=== PATIENT | female | born 1985 | race Caucasian/White ===

== ENCOUNTER → 2016-03-25 | Outpatient (CLI) | payer OTHER ==
[2016-03-25 12:45] LABS: CH 30.1; CHCM 35.4; HCT 36.3 % (34.0-46.0); HDW 3.23; HGB 12.3 gm/dL (11.4-16.0); MCH 28.8 pg (25.0-35.0); MCHC 33.7 g/dL (31.0-37.0); MCV 85.4 fL (80.0-100.0); Mean Platelet Volume 7.8; RBC 4.25 m/uL (3.80-5.40); RDW 13.6 % (11.5-15.5); WBC 8.3 k/uL (3.8-10.6)
== END | disposition home or self-care (01) ==
LOC: LABWHC1 10:44
PROVIDERS: ATTEND Obstetrics & Gynecology
DX: Z34.82 Encounter for supervision of other normal pregnancy, second trimester (principal); Z3A.00 Weeks of gestation of pregnancy not specified
CPT/HCPCS: 36415; 82950; 85027; 86850

== ENCOUNTER → 2016-05-06 | Outpatient (CLI) | payer OTHER ==
--- NOTE | 2016-05-06 09:28 | US ---
EXAMINATION TYPE: US OB anatomy transabd third trimester DATE OF EXAM: 05/06/2016 7:45 AM COMPARISON: on PACS second trimester December 19, 2015 HISTORY: Anatomy TECHNIQUE: Transabdominal (TA) EXAM MEASUREMENTS: GESTATIONAL AGE / DATING Physician Established: (34 weeks/6 days) EDC: 06/08/2016 Dates by Current Scan for: (34 weeks/4 days) EDC: 06/13/2016 SURVEY IUP: Single PLACENTA: Posterior PREVIA: No previa TAMELA: 19.1 cm CERVICAL LENGTH (transabdominal: norm > 3.0cm): 3.4 cm BIOMETRY PRESENTATION: Vertex LIE: Longitudinal BPD: 8.5 cm 34 weeks / 2 days HC: 31.6 cm 35 weeks / 4 days AC: 30.7 cm 34 weeks / 5 days FL: 6.5 cm 33 weeks / 4 days ESTIMATED WEIGHT IN GRAMS: 2418 grams ESTIMATED WEIGHT IN LBS/OZS: 5 lbs. 5 oz. WEIGHT PERCENTAGE BASED ON ESTABLISHED DATE: 33 % HC/AC: Normal FL/AC: Normal HEART RATE: 138 bpm RHYTHM: Normal ANATOMY SEEN (within normal limits): * Lateral Vent (< 1 cm) 0.5 cm Choroid Plexus (bilateral) Midline Falx Cavus Septi Pellucidi Four Chamber Heart Outflow tracts: LVOT/RVOT Stomach Situs Nose / Lips Diaphragm Kidneys (bilateral) Bladder Cord Insert Three Vessel Cord Longitudinal Spine Transverse Spine Legs (bilateral) ANATOMY SEEN (does not appear within normal limits): ANATOMY NOT SEEN: * Cisterna Magna (< 1.1 cm) cm * Nuchal Fold (< 0.6 cm) cm * Cerebellum (varies with age) cm Arms (bilateral) TECHNOLOGIST IMPRESSION: Suboptimal visualization of anatomy due to advanced gestational age. Live IUP measuring 34 weeks 4 days. Single live intrauterine gestation is redemonstrated. Normal cephalad presentation to fetus is curre ntly seen. Amniotic fluid index is upper limits of normal. There is no ultrasound evidence for placen ta previa. biometry measurements are within normal limits. Detailed anatomical survey shows no suspicious abnormality but is noted suboptimal due to advanced age particularly during real-ti me scanning bilateral upper extremities and intracranial structures are suboptimally evaluated. Other findings felt within normal limits during real-time scanning. Still images saved also document ruby l-appearing anatomy in the above structures. IMPRESSION:As above
== END | disposition home or self-care (01) ==
LOC: RADUSWWP 07:01
PROVIDERS: ATTEND Obstetrics & Gynecology
DX: O36.63X0 Maternal care for excessive fetal growth, third trimester, not applicable or unspecified (principal)
CPT/HCPCS: 76811

== ENCOUNTER 2016-06-11 13:00 | Inpatient (IN) | payer OTHER ==
[2016-06-13] MEDS ORDERED: LIDOCAINE 1% (PF) 10 MG/ML (30 ML SDV) SQ PRN (06:04)
[2016-06-13] MEDS ORDERED: CARBOPROST TROMETHAMINE 250 MCG/ML 1 ML AMP IM PRN (06:04)
[2016-06-13] MEDS ORDERED: OXYTOCIN 30 UNITS/500 ML NS 30 UNIT in SALINE 1 500ML.BAG IV SCH (06:04)
[2016-06-13] MEDS ORDERED: OXYTOCIN 10 UNIT/ML 1 ML VIAL IM PRN (06:04)
[2016-06-13] MEDS ORDERED: METHYLERGONOVINE 0.2 MG/ML 1 ML AMP IM PRN (06:04)
[2016-06-13] MEDS ORDERED: TERBUTALINE 1 MG/ML VIAL SQ PRN (06:04)
--- NOTE | 2016-06-13 06:05 | P.HPOB ---
History of Present Illness H&P Date: 06/13/16 Chief Complaint: Patient is presenting for requested induction of labor. This patient is a pleasant 31-year-old 4 para 2 female estimated date of confinement 06/11/2016 estimated gestational age 40-2/7 weeks who presents to labor and delivery for requested induction of labor. Patient's care has been uncomplicated. Review of Systems Constitutional: Denies chills, Denies fever Ears, nose, mouth and throat: Denies headache, Denies sore throat Cardiovascular: Denies chest pain, Denies shortness of breath Respiratory: Denies cough Gastrointestinal: Reports heartburn Genitourinary: Reports Menstruation: Reports amenorrhea Musculoskeletal: Denies myalgias Integumentary: Denies pruritus, Denies rash Neurological: Denies numbness, Denies weakness Psychiatric: Denies anxiety, Denies depression Endocrine: Denies fatigue, Denies weight change Past Medical History Past Medical History: No Reported History History of Any Multi-Drug Resistant Organisms: None Reported Past Surgical History: Orthopedic Surgery Past Anesthesia/Blood Transfusion Reactions: No Reported Reaction Past Psychological History: No Psychological Hx Reported Smoking Status: Never smoker Past Alcohol Use History: None Reported Past Drug Use History: None Reported Medications and Allergies Home Medications Medication Instructions Recorded Confirmed Type Pnv with Ca,No.72/Iron/FA 1 tab PO DAILY 06/30/15 05/22/16 History [ Plus Tablet] Allergies Allergy/AdvReac Type Severity Reaction Status Date / Time No Known Allergies Allergy Verified 05/22/16 17:04 Exam - OBG Physical Exam Abdomen: bowel sounds normal, no diffuse tenderness, no bruit present, no guarding noted, no hepatomegaly, no splenomegaly, no mass Vulva: both: normal Vagina: normal moisture, no discharge Cervix: Cervix in the office was 2 cm dilated and vertex presentation. Uterus: enlarged (Fundal height is consistent with a term .) Results blood work shows she is O-, rubella immune, RPR is nonreactive, hepatitis B is negative, B strep was negative, ultrasounds have been normal, patient did receive RhoGAM on March 26. Assessment and Plan (1) Third trimester Narrative/Plan: This is a pleasant 31-year-old 4 para 2 female 40-2/7 weeks gestation who is presenting for requested induction of labor. Plan is induction of labor and anticipate vaginal delivery. Status: Acute (2) Elective induction of labor planned Status: Acute (3) Rh negative status during Status: Acute
[2016-06-13] MEDS: LACTATED RINGERS 1,000 ML IV SCH ×3 (06:21→23:13)
[2016-06-13 07:16] VITALS: BMI 41.5
[2016-06-13 07:32] LABS: Basophils % (A) 0 %; CH 29.8; Eosinophils # (A) 0.1 k/uL (0-0.7); Eosinophils % (A) 1 %; HCT 37.3 % (34.0-46.0); HDW 3.29; HGB 13.1 gm/dL (11.4-16.0); Luc # (Auto) 0.13; Luc % (Auto) 1; Lymphocytes # (A) 1.7 k/uL (1.0-4.8); Lymphocytes % (A) 16 %; MCH 29.4 pg (25.0-35.0); MCHC 35.3 g/dL (31.0-37.0); MCV 83.3 fL (80.0-100.0); Mean Platelet Volume 7.6; Monocytes # (A) 0.5 k/uL (0-1.0); Monocytes % (A) 5 %; Neutrophils # (A) 7.8 k/uL (1.3-7.7); Neutrophils % (A) 77 %; RBC 4.47 m/uL (3.80-5.40); RDW 14.2 % (11.5-15.5); WBC 10.2 k/uL (3.8-10.6); WBC (Perox) 10.78
[2016-06-13 12:16] LABS: Glucose,Whole Blood 74 mg/dL (75-99)
[2016-06-13] MEDS ORDERED: SODIUM CHLORIDE 0.9% 100 ML BAG ONE (18:55)
[2016-06-13] MEDS ORDERED: fentaNYL (PF) 50 MCG/ML 5 ML AMP ONE (18:55)
[2016-06-13] MEDS ORDERED: BUPIVACAINE (PF) 0.25% 30 ML VIAL ONE (18:55)
[2016-06-13] MEDS ORDERED: BUPIVACAINE (PF) 0.25% 25 ML, fentaNYL (PF) 200 MCG in SODIUM CHLORIDE 0.9% 71 ML EPIDURAL ONE (19:10)
[2016-06-13] MEDS ORDERED: ceFAZolin 2 GM in SODIUM CHLORIDE 0.9% 100 ML IVPB ONE (23:01)
[2016-06-13] MEDS ORDERED: CITRIC ACID-SODIUM CITRATE 15 ML CUP PO ONE (23:01)
[2016-06-13] MEDS ORDERED: LIDOCAINE HCL/PF 20 MG/ML 10 ML AMP ONE (23:18)
[2016-06-13] MEDS ORDERED: ePHEDrine 50 MG/ML 1 ML AMP ONE (23:18)
[2016-06-13] MEDS ORDERED: ONDANSETRON 4 MG/2 ML VIAL ONE (23:18)
[2016-06-13] MEDS ORDERED: fentaNYL (PF) 50 MCG/ML 2 ML AMP ONE (23:18)
[2016-06-13] MEDS ORDERED: ceFAZolin 1,000 MG VIAL ONE (23:18)
[2016-06-13] MEDS ORDERED: OXYTOCIN 10 UNIT/ML 1 ML VIAL IM ONE (23:18)
[2016-06-13] MEDS ORDERED: KETOROLAC 30 MG/ML 1 ML VIAL ONE (23:18)
[2016-06-14] MEDS ORDERED: SIMETHICONE 80 MG CHEWABLE PO PRN (00:14)
[2016-06-14] MEDS ORDERED: IBUPROFEN 600 MG TAB PO PRN (00:14)
[2016-06-14] MEDS ORDERED: ZOLPIDEM 5 MG TAB PO PRN (00:14)
[2016-06-14] MEDS ORDERED: NALOXONE 0.4 MG/ML 1 ML VIAL IV PRN ×2 (00:14→00:20)
[2016-06-14] MEDS ORDERED: diphenhydrAMINE 50 MG/ML 1 ML VIAL IVP PRN (00:14)
[2016-06-14] MEDS ORDERED: diphenhydrAMINE 25 MG CAP PO PRN (00:14)
[2016-06-14] MEDS ORDERED: ACETAMINOPHEN TAB 325 MG TAB PO PRN (00:14)
[2016-06-14] MEDS ORDERED: METOCLOPRAMIDE 5 MG/ML 2 ML VIAL IVP PRN (00:14)
[2016-06-14] MEDS ORDERED: ONDANSETRON 4 MG/2 ML VIAL IVP PRN (00:14)
[2016-06-14] MEDS ORDERED: HYDROmorphone PCA 5 MG/25 ML SYRINGE IV PRN (00:20)
--- NOTE | 2016-06-14 00:28 | P.OP ---
Date of Procedure: 06/13/16 Preoperative Diagnosis: #1: 40-2/7 week intrauterine . #2: Failure to progress in labor. #3: Multi parity desires permanent sterilization. Postoperative Diagnosis: Same Procedure(s) Performed: Primary low transverse section and bilateral partial salpingectomy. Anesthesia: epidural Surgeon: Matthew Carrillo Art Objects Salesperson #1: Nereyda Dave Estimated Blood Loss (ml): 800 Pathology: other (Placenta and bilateral fallopian tube segments) Condition: stable Disposition: floor Indications for Procedure: Please see dictated H&P for intimate details of this patient's admission. In brief summary this a pleasant 31-year-old 4 para 2 female 40-2/7 weeks gestation who is admitted to labor and delivery for postdates induction of labor. Patient labor throughout the day and despite adequate labor does not progress beyond 8-9 cm and the head beyond 0 station. At this time I discussed with the patient further observation versus section we've elected proceed with at this time. She also was requesting tubal ligation for permanent sterilization. Patient does understand surgery has risks including risks of infection, bleeding, possible injury bowel, bladder, vessels, and other organs. She also understands a tubal ligation is permanent although there is a failure rate of approximately 20-25 per thousand procedures done. All the patient's questions are answered written consent is obtained. Operative Findings: This is a vigorous viable female Apgars 9 and 9 delivery time was 2338 hrs. Description of Procedure: This patient has a Salas catheter placed to straight drain. She is taken to the operating room where her epidural is dosed up for sufficient level for surgery. With an adequate level of anesthesia she has abdominal prep and drape. Scalpels and taken a Pfannenstiel skin incision is then made. A second scalpel is taken down the fascia the fascia scored with a knife. Fascial incision extended bilaterally using the Disla scissors. Fascia is then dissected off the rectus muscles. Rectus muscles are the peritoneum identified and entered sharply. Peritoneal incision extended superior and inferior without difficulty. Bladder blade is then placed. Bladder peritoneum was taken off the lower uterine segment. Scalpels taken low transverse uterine incision is then made. Using a hemostat I into the uterine cavity bluntly and there is loss of clear fluid. The uterine incision is extended bluntly bilaterally. 's head is then guided through the incision. The infant is os but transverse presentation. Mouth and nares are bulb suctioned. There is no evidence of nuchal cord. Then delivery anterior posterior shoulder and rest this infant's body. This is a vigorous viable female infant Apgars 9 and 9 delivery time was 2338 hrs. After delivery of the the umbilical cords doubly clamped and cut appears to be trivascular. Placenta is manually extracted intact. The uterine incision is then demarcated with Rain clamps and then closed using 0 Vicryl running locked fashion 2 layers. Excellent hemostasis is noted. I turned my attention left fallopian tube approximately 4 cm from the cornual insertion a small window is made to the mesial salpinx with Bovie cautery. Using a 2-0 silk I doubly ligate a piece of the tube. A 2 cm segment of the tube is then excised with Metzenbaum scissors and then handed off to pathology. Cauterization done of the tubal ends and good hemostasis is noted. Similar technique is done on the right side with similar results. This completed excess fluid is removed from the abdomen and pelvis. Uterus placed back into the abdomen. Parietal peritoneum was then identified and closed using 0 Vicryl running fashion. Rectus muscle reapproximate 0 Vicryl interrupted fashion. Fascia is then closed using 0 PDS in a running fashion. Fascial incision is intact and hemostatic. Subcutaneous tissues and closed using a 3-0 Vicryl. Skin is and closed using gely. Sterile dressing is applied. Patient is then taken to the birthing suite in satisfactory condition. All counts are correct 3. There are no complications.
[2016-06-14] MEDS: LACTATED RINGERS 1,000 ML IV SCH (03:29)
[2016-06-14] MEDS ORDERED: Acetaminophen-Codeine 300-30mg TAB PO PRN (06:59)
--- NOTE | 2016-06-14 07:02 | P.PNOBGPC ---
Subjective - Subjective Patient reports: Reports pain well controlled : doing well Objective - Vital Signs Latest vital signs: Vital Signs Temp Pulse Pulse Resp BP BP Pulse Ox 06/14/16 05:13 97.7 F 76 16 120/70 97 06/14/16 04:00 75 16 117/57 96 06/14/16 03:31 16 96 06/14/16 03:16 96 06/14/16 03:00 16 06/14/16 02:15 97.1 F L 82 16 110/59 96 06/14/16 01:40 97.6 F 80 16 126/65 96 06/14/16 01:15 97.6 F 82 16 122/58 96 06/14/16 01:00 97.9 F 96 18 125/58 98 06/14/16 00:45 97.7 F 94 18 123/59 93 L 06/14/16 00:30 97.2 F L 90 18 119/66 97 06/14/16 00:20 98 06/14/16 00:15 97.6 F 98 18 127/71 98 Intake and Output 06/13/16 06/14/16 06/14/16 22:59 06:59 14:59 Output Total 300 Balance -300 Output: Urine 300 Other: Voiding Method Indwelling Catheter - Exam Lungs: bilateral: normal Chest: Normal S1, Normal S2 Extremities: Present: normal Abdomen: Present: normal appearance, soft. Absent: distention, tenderness Incision: Present: normal, dry, intact Uterus: Present: normal, firm - Labs Labs: Abnormal Lab Results - Last 24 Hours (Table) 06/13/16 06/13/16 Range/Units 06:14 12:05 Neutrophils # 7.8 H (1.3-7.7) k/uL POC Glucose (mg/dL) 74 L (75-99) mg/dL Assessment and Plan (1) Third trimester Narrative/Plan: day #1. Patient's vital signs are stable she is afebrile. Uterus is firm and appropriately tender. I did express several large dark red clots this morning but there is no active bleeding. Incision is intact and dry. CBC is pending. My impression is a normal postoperative course. Plan is to discontinue her MUNICIPAL CLERK and Salas catheter today. Clear liquid diet for breakfast advanced to regular tolerable. Encourage ambulation as well. Current Visit: Yes Status: Acute Code(s): Z33.1 - STATE, INCIDENTAL SNOMED Code(s): 15268905 (2) Elective induction of labor planned Current Visit: Yes Status: Acute Code(s): RWT2377 - SNOMED Code(s): 713488849 (3) Rh negative status during Current Visit: Yes Status: Acute Code(s): O09.899 - SUPERVISION OF OTHER HIGH RISK PREGNANCIES, UNSP TRIMESTER SNOMED Code(s): 691228837
[2016-06-14 07:14] LABS: Basophils % (A) 0 %; CH 29.7; CHCM 35.8; Eosinophils % (A) 0 %; HCT 33.9 % (34.0-46.0); HDW 3.32; HGB 11.9 gm/dL (11.4-16.0); Luc % (Auto) 1; Lymphocytes % (A) 8 %; MCH 29.5 pg (25.0-35.0); MCHC 35.2 g/dL (31.0-37.0); MCV 83.7 fL (80.0-100.0); Mean Platelet Volume 7.7; Monocytes # (A) 0.5 k/uL (0-1.0); Monocytes % (A) 4 %; Neutrophils # (A) 10.6 k/uL (1.3-7.7); Neutrophils % (A) 87 %; RBC 4.05 m/uL (3.80-5.40); RDW 14.1 % (11.5-15.5); WBC 12.3 k/uL (3.8-10.6); WBC (Perox) 12.78
[2016-06-14] MEDS: ceFAZolin 2 GM in SODIUM CHLORIDE 0.9% 100 ML IVPB SCH ×2 (07:54→16:37)
[2016-06-14] MEDS: KETOROLAC 30 MG/ML 1 ML VIAL IVP PRN ×3 (07:55→21:22)
[2016-06-14] MEDS: SENNOSIDES-DOCUSATE SODIUM 1 EACH TAB PO SCH ×2 (07:57→21:23)
[2016-06-14] MEDS: Acetaminophen-Codeine 300-30mg TAB PO PRN ×2 (12:35→18:34)
[2016-06-14] MEDS ORDERED: Rhogam IMMUNE GLOBULIN 1,500 UNIT/1 ML IM ONE (19:49)
[2016-06-15] MEDS: Acetaminophen-Codeine 300-30mg TAB PO PRN ×2 (00:55→09:29)
[2016-06-15 03:25] VITALS: PULSE 86
[2016-06-15] MEDS: LACTATED RINGERS 1,000 ML IV SCH (06:05)
--- NOTE | 2016-06-15 07:32 | P.PNOBGPC ---
Subjective - Subjective Patient reports: Reports appetite normal, Reports voiding normally, Reports pain well controlled, Reports ambulating normally : doing well Objective - Vital Signs Latest vital signs: Vital Signs Temp Pulse Resp BP Pulse Ox 06/15/16 00:30 98.1 F 86 16 108/56 06/14/16 20:00 98.5 F 100 16 129/69 06/14/16 17:00 90 20 120/66 97 06/14/16 15:06 20 06/14/16 15:04 99.1 F 92 20 06/14/16 12:00 98.9 F 92 20 97 06/14/16 08:00 97.7 F 72 20 120/72 97 Intake and Output 06/14/16 06/15/16 06/15/16 22:59 06:59 14:59 Intake Total 340 Output Total 900 Balance -560 Intake: Oral 340 Output: Urine 900 Other: Voiding Method Toilet # Voids 1 1 - Exam Lungs: bilateral: normal Chest: Normal S1, Normal S2 Extremities: Present: normal Abdomen: Present: normal appearance, soft. Absent: distention, tenderness Incision: Present: normal, dry, intact Uterus: Present: normal, firm Assessment and Plan (1) Third trimester Narrative/Plan: Post operative day #2. Patient is resting without complaints and wishes to go home today. Vital signs are stable she is afebrile. CBC showed her hemoglobin good yesterday. Patient is tolerating regular diet, urinating, ambulating. Incision is intact and dry. My impression is a normal postoperative course. Plan is to continue routine postoperative care discharge home later today per patient request. Current Visit: Yes Status: Acute Code(s): Z33.1 - STATE, INCIDENTAL SNOMED Code(s): 20553154 (2) Elective induction of labor planned Current Visit: Yes Status: Acute Code(s): CXT3961 - SNOMED Code(s): 958233360 (3) Rh negative status during Current Visit: Yes Status: Acute Code(s): O09.899 - SUPERVISION OF OTHER HIGH RISK PREGNANCIES, UNSP TRIMESTER SNOMED Code(s): 650183466
--- NOTE | 2016-06-15 07:38 | P.DS ---
Providers Date of admission: 06/13/16 05:54 Expected date of discharge: 06/15/16 Attending physician: Matthew Carrillo Primary care physician: Stated None - Discharge Diagnosis(es) (1) Third trimester Current Visit: Yes Status: Acute (2) Elective induction of labor planned Current Visit: Yes Status: Acute (3) Rh negative status during Current Visit: Yes Status: Acute Hospital Course: Please see dictated H&P for intimate details of this patient's admission. Brief summary this pleasant 31-year-old female admitted for postdates induction of labor. Patient's subsequent was on have a primary low transverse section and tubal ligation. Please see dictated operative note. Postoperatively the patient does well and on postoperative # 2 wishes to go home. Patient's felt be stable for discharge home follow up with me in 1 week for an incision check. Procedures: Primary low transverse section and bilateral partial salpingectomy. Patient Condition at Discharge: Good Plan - Discharge Summary New Discharge Prescriptions: Acetaminophen-Codeine 300-30mg [Tylenol w/codeine #3] 1 - 2 each PO Q4HR PRN # 40 tab PRN Reason: Moderate Pain 4-6 Ibuprofen [Motrin] 600 mg PO Q6HR PRN #40 tab PRN Reason: Mild Pain Or Fever >= 100.5 Discharge Medication List Pnv with Ca,No.72/Iron/FA [ Plus Tablet] 1 tab PO DAILY 06/30/15 [ History] Acetaminophen-Codeine 300-30mg [Tylenol w/codeine #3] 1 - 2 each PO Q4HR PRN # 40 tab 06/15/16 [Rx] Ibuprofen [Motrin] 600 mg PO Q6HR PRN #40 tab 06/15/16 [Rx] Follow up Appointment(s)/Referral(s): Matthew Carrillo MD [STAFF PHYSICIAN] - 1 Week (Please see me in 1 week for an incision check and also on July 22 at 9:45 AM for a check.) Patient Instructions/Handouts: (DC) Activity/Diet/Wound Care/Special Instructions: No heavy lifting or strenuous activities for 6 weeks. No intercourse or anything per vagina for 6 weeks. Please call if any fever, chills, excessive vaginal bleeding, and/or abdominal pain. Discharge Disposition: HOME SELF-CARE
[2016-06-15 09:00] VITALS: RESP 20
[2016-06-15 09:01] VITALS: BP 116/67; TEMP 98
[2016-06-15] MEDS: SENNOSIDES-DOCUSATE SODIUM 1 EACH TAB PO SCH (09:30)
== END 2016-06-15 13:30 | disposition home or self-care (01) | DRG 766 ==
LOC: 4FBP 06-13 05:54
PROVIDERS: ADMIT Obstetrics & Gynecology; ATTEND Obstetrics & Gynecology
PROC: 4A1H74Z Monitoring of Products of Conception, Cardiac Electrical Activity, Via Natural or Artificial Opening (ICD-10-PCS; principal; 2016-06-13 06:15)
PROC: 10H073Z Insertion of Monitoring Electrode into Products of Conception, Via Natural or Artificial Opening (ICD-10-PCS; principal; 2016-06-13 06:15)
PROC: 3E033VJ Introduction of Other Hormone into Peripheral Vein, Percutaneous Approach (ICD-10-PCS; principal; 2016-06-13 06:15)
PROC: 10907ZC Drainage of Amniotic Fluid, Therapeutic from Products of Conception, Via Natural or Artificial Opening (ICD-10-PCS; principal; 2016-06-13 06:15)
PROC: 0UB70ZZ Excision of Bilateral Fallopian Tubes, Open Approach (ICD-10-PCS; 2016-06-14)
PROC: 10D00Z1 Extraction of Products of Conception, Low, Open Approach (ICD-10-PCS; 2016-06-14)
DX: O48.0 Post-term pregnancy (principal); O26.893 Other specified pregnancy related conditions, third trimester; Z37.0 Single live birth; Z3A.40 40 weeks gestation of pregnancy; Z67.91 Unspecified blood type, Rh negative; O32.4XX0 Maternal care for high head at term, not applicable or unspecified; O62.0 Primary inadequate contractions; Z30.2 Encounter for sterilization
CPT/HCPCS: 85025; 85461; 88302; 88307

== ENCOUNTER 2023-11-17 11:08 | Emergency (ER) | payer MEDICAID, OTHER ==
[2023-11-17 11:11] VITALS: TEMP 97.9
[2023-11-17 11:41] LABS: Basophils % (A) 0 %; Eosinophils # (A) 0.1 k/uL (0-0.7); Eosinophils % (A) 1 %; HCT 39.5 % (34.0-46.0); Lymphocytes # (A) 1.5 k/uL (1.0-4.8); Lymphocytes % (A) 25 %; MCH 24.6 pg (25.0-35.0); MCV 74.6 fL (80.0-100.0); Mean Platelet Volume 7.7; Microcytosis Slight; Monocytes # (A) 0.2 k/uL (0-1.0); Monocytes % (A) 4 %; Neutrophils # (A) 4.1 k/uL (1.3-7.7); Neutrophils % (A) 69 %; Platelet Count 197 k/uL (150-450); RBC 5.29 m/uL (3.80-5.40); RDW 14.2 % (11.5-15.5)
[2023-11-17 11:47] LABS: ALT 20 U/L (4-34); AST 28 U/L (14-36); African American GFR (CKD) >90 (>60 ml/min/1.73 sqM); Albumin 4.2 g/dL (3.5-5.0); Alkaline Phosphatase 79 U/L (38-126); Anion Gap 5 mmol/L; Blood Urea Nitrogen 11 mg/dL (7-17); Calcium 9.7 mg/dL (8.4-10.2); Carbon Dioxide 29 mmol/L (22-30); Chloride 104 mmol/L (98-107); Glucose 95 mg/dL (74-99); Magnesium 1.8 mg/dL (1.6-2.3); Non-African American GFR(CKD) >90 (>60 ml/min/1.73 sqM); Sodium 138 mmol/L (137-145); Total Bilirubin 0.5 mg/dL (0.2-1.3); Total Protein 6.8 g/dL (6.3-8.2)
--- NOTE | 2023-11-17 11:47 | ED ---
Chest Pain HPI - General Source: patient, RN notes reviewed Mode of arrival: ambulatory Limitations: no limitations <Twyla Gorman - Last Filed: 11/17/23 11:46> - General Source: patient, RN notes reviewed, old records reviewed Mode of arrival: ambulatory Limitations: no limitations - History of Present Illness MD Complaint: chest pain, other (Anxiety) -: month(s) (But today its only been active for a few hours) Pain Location: substernal, left chest Pain Radiation: back Severity: moderate Quality: aching Consistency: constant Improves With: nothing Worsens With: nothing Anginal Symptoms: diaphoresis, dyspnea Other Symptoms: palpitations Treatments Prior to Arrival: none <Mikye Dallas - Last Filed: 11/26/23 17:23> - General Chief Complaint: Chest Pain Stated Complaint: Chest Pain Time Seen by Provider: 11/17/23 11:21 - History of Present Illness Initial Comments: Quick [id number] female since emergency department chief complaint of left-sided intermittent squeezing chest pain that started at 09 100 this morning. Patient states that over the past few months she has been experiencing chest pain and heart palpitations and is scheduled outpatient for a stress test and echo with Dr. Davis. She denies shortness of breath, fevers, chills. Endorses mild nausea with episodes of chest pain. (Twyla Gorman) This is a 38-year-old for chest pain. Chest pain and anxiety throughout the day. She has had the symptoms since June and is scheduled for stress test. Patient does feel more anxious today with pain going to her back, she did take her blood pressure and was noted to be different in both arms (Mikey Dallas) - Related Data Previous Rx's Medication Instructions Recorded hydrOXYzine pamoate [Vistaril] 25 mg PO TID PRN #30 cap 11/17/23 Allergies Allergy/AdvReac Type Severity Reaction Status Date / Time No Known Allergies Allergy Verified 11/17/23 11:11 Review of Systems ROS Other: All systems not noted in ROS Statement are negative. <Twyla Gorman - Last Filed: 11/17/23 11:46> ROS Other: All systems not noted in ROS Statement are negative. <Mikey Dallas - Last Filed: 11/26/23 17:23> ROS Statement: Those systems with pertinent positive or pertinent negative responses have been documented in the HPI. EKG Findings - EKG Comments: EKG Findings:: EKG is sinus 71 WV 146 QRS 94 QTc 402 - EKG Results: EKG: interpreted by ERMD <Mikey Dallas - Last Filed: 11/26/23 17:23> Past Medical History Past Medical History: No Reported History History of Any Multi-Drug Resistant Organisms: None Reported Past Surgical History: Orthopedic Surgery Past Anesthesia/Blood Transfusion Reactions: No Reported Reaction Past Psychological History: No Psychological Hx Reported Smoking Status: Never smoker Past Alcohol Use History: None Reported Past Drug Use History: None Reported - Past Family History Father Family Medical History: Hypertension <Twyla Gorman - Last Filed: 11/17/23 11:46> General Exam Limitations: no limitations <Twyla Gorman - Last Filed: 11/17/23 11:46> General appearance: alert, in no apparent distress, anxious Head exam: Present: atraumatic, normocephalic, normal inspection Eye exam: Present: normal appearance, PERRL, EOMI. Absent: scleral icterus, conjunctival injection, periorbital swelling ENT exam: Present: normal exam, mucous membranes moist Neck exam: Present: normal inspection. Absent: tenderness, meningismus, lymphadenopathy Respiratory exam: Present: normal lung sounds bilaterally. Absent: respiratory distress, wheezes, rales, rhonchi, stridor Cardiovascular Exam: Present: regular rate, normal rhythm, normal heart sounds. Absent: systolic murmur, diastolic murmur, rubs, gallop, clicks GI/Abdominal exam: Present: soft, normal bowel sounds. Absent: distended, tenderness, guarding, rebound, rigid Extremities exam: Present: normal inspection, full ROM, normal capillary refill. Absent: tenderness, pedal edema, joint swelling, calf tenderness Back exam: Present: normal inspection Neurological exam: Present: alert, oriented X3, CN II-XII intact Psychiatric exam: Present: normal affect, normal mood Skin exam: Present: warm, dry, intact, normal color. Absent: rash <Mikey Dallas - Last Filed: 11/26/23 17:23> - General Exam Comments Initial Comments: Visual Physical Exam Vital signs reviewed General: Well-appearing, nontoxic, no acute distress. Head: Normocephalic, atraumatic Eyes: PERRLA, EOMI ENT: Airway patent Chest: Nonlabored breathing Skin: No visual rash, normal skin tone Neuro: Alert and oriented 3 Musculoskeletal: No gross abnormalities (Stieler,Twyla) Course <Mikey Dallas - Last Filed: 11/26/23 17:23> Vital Signs 11/17/23 11/17/23 11:09 15:29 Temperature 97.9 F Pulse Rate 79 77 Respiratory 20 18 Rate Blood Pressure 138/80 119/70 O2 Sat by Pulse 99 98 Oximetry - Reevaluation(s) Reevaluation #1: 11/17/23 14:35 Medical records reviewed (Mikey Dallas) Reevaluation #2: 11/17/23 14:35 Patient symptoms unchanged (Mikey Dallas) Reevaluation #3: 11/17/23 14:35 Patient informed of results and questions answered (Mikey Dallas) Reevaluation #4: Was pt. sent in by a medical professional or institution (, PA, NEUROLOGY TECHNICIAN, urgent care, hospital, or senior living...) When possible be specific @ -no Did you speak to anyone other than the patient for history (EMS, parent, family, police, friend...)? What history was obtained from this source @ -no Did you review nursing and triage notes (agree or disagree)? Why? @ -agree Are old charts reviewed (outside hosp., previous admission, EMS record, old EKG, old radiological studies, urgent care reports/EKG's, senior living records)? Report findings @ -yes Differential Diagnosis (chest pain, altered mental status, abdominal pain women, abdominal pain men, vaginal bleeding, weakness, fever, dyspnea, syncope, headache, dizziness, GI bleed, back pain, seizure, CVA, palpatations, mental health, musculoskeletal)? @ -prior EKG interpreted by me (3pts min.). @ -yes X-rays interpreted by me (1pt min.). @ -yes negative for acute disease CT interpreted by me (1pt min.). @ -Yes negative for acute disease U/S interpreted by me (1pt. min.). @ -no What testing was considered but not performed or refused? (CT, X-rays, U/S, labs)? Why? @ -none What meds were considered but not given or refused? Why? @ -none Did you discuss the management of the patient with other professionals (professionals i.e. , PA, NEUROLOGY TECHNICIAN, lab, RT, psych nurse, fiber worker, ruffling machine operator, teacher, radiation safety officer, insurance case manager)? Give summary @ -no Was smoking cessation discussed for >3mins.? @ -no Was critical care preformed (if so, how long)? @ -no Were there social determinants of health that impacted care today? How? (Homelessness, low income, unemployed, alcoholism, drug addiction, transportation, low edu. Level, literacy, decrease access to med. care, nursing home, rehab)? @ -none Was there de-escalation of care discussed even if they declined (Discuss DNR or withdrawal of care, Hospice)? DNR status @ -no What co-morbidities impacted this encounter? (DM, HTN, Smoking, COPD, CAD, Cancer, CVA, ARF, Chemo, Hep., AIDS, mental health diagnosis, sleep apnea, morbid obesity)? @ -none Was patient admitted / discharged? Hospital course, mention meds given and route, prescriptions, significant lab abnormalities, going to OR and other pertinent info. @ - 38 female to the ER for evaluation of chest pain today chest pain without tenderness blood pressures in both arms. Patient has normal testing here in the ER, does admit to mild anxiety that is improved patient can be discharged Discharged Undiagnosed new problem with uncertain prognosis? @ -no Drug Therapy requiring intensive monitoring for toxicity (Heparin, Nitro, Insulin, Cardizem)? @ -no Were any procedures done? @ -no Diagnosis/symptom? @ -Chest pain Acute, or Chronic, or Acute on Chronic? @ -Acute Uncomplicated (without systemic symptoms) or Complicated (systemic symptoms)? @ -Complicated Side effects of treatment? @ -no Exacerbation, Progression, or Severe Exacerbation? @ -exacerbation Poses a threat to life or bodily function? How? (Chest pain, USA, MS, pneumonia, PE, COPD, DKA, ARF, appy, cholecystitis, CVA, Diverticulitis, Homicidal, Suicidal, threat to staff... and all critical care pts) @ -yes with chest pain (Mikey Dallas) Reevaluation #5: Differential Chest Pain: Stable Angina, Unstable Angina, STEMI, NSTEMI Aortic Dissection, Pneumothorax, Musculoskeletal, Esophageal Spasm GERD, Cholecystitis, Pancreatitis, Zoster, this is not meant to be an all-inclusive list. (Mikey Dallas) Chest Pain MDM <Twyla Gorman - Last Filed: 11/17/23 11:46> <Mikey Dallas - Last Filed: 11/26/23 17:23> - MDM I completed the quick note portion of this chart signed Twyla Gorman PA-C (Twyla Gorman) 38 female to the ER for evaluation of chest pain today chest pain without tenderness blood pressures in both arms. Patient has normal testing here in the ER, does admit to mild anxiety that is improved patient can be discharged (Mikey Dallas) Disposition <Twyla Gorman - Last Filed: 11/17/23 11:46> Is patient prescribed a controlled substance at d/c from ED?: No Time of Disposition: 15:00 <Mikey Dallas - Last Filed: 11/26/23 17:23> Clinical Impression: Chest pain, Anxiety Disposition: HOME SELF-CARE Condition: Fair Instructions (If sedation given, give patient instructions): Chest Pain (ED) Prescriptions: hydrOXYzine pamoate [Vistaril] 25 mg PO TID PRN #30 cap PRN Reason: Anxiety Referrals: Geoffrey Shay DO [Primary Care Provider] - 1-2 days
--- NOTE | 2023-11-17 11:48 | XR ---
EXAMINATION TYPE: XR chest 2V DATE OF EXAM: 11/17/2023 COMPARISON: 11/13/1959 TECHNIQUE: PA and lateral views submitted. HISTORY: Chest FINDINGS: The lungs are clear and there is no pneumothorax, pleural effusion, or focal pneumonia. Heart size normal and no overt failure. Osseous structures demonstrate hypertrophic and degenerative changes of the spine. IMPRESSION: 1. No acute process. [facility], , 11/17/2023 11:46 AM
[2023-11-17 12:16] LABS: INR 0.9 (<1.2); Partial Thromboplastin Time 25.2 sec (22.0-30.0)
[2023-11-17] MEDS: SODIUM CHLORIDE 0.9% 1,000 ML IV STA (14:08)
[2023-11-17] MEDS: LORazepam 2 MG/ML INJ IV STA (14:10)
--- NOTE | 2023-11-17 14:36 | CT ---
EXAMINATION TYPE: CT angio chest DATE OF EXAM: 11/17/2023 COMPARISON: None HISTORY: PE CT DLP: 327.4 mGycm CONTRAST: CT chest with contrast and 3D reconstruction with MIP imaging is performed with IV Contrast, patient injected with 100 mL of Isovue 370. Contrast-enhanced CT of the chest was performed through the course of the pulmonary arteries with christ g and mediastinal window settings submitted. 3D reconstruction with MIP imaging was also performed. PULMONARY ARTERIES: The pulmonary arteries and their major tributaries are patent. I do not see junie dence for sizable filling defect to suggest pulmonary embolic process. LUNGS: The lungs are clear and free of infiltrate. No evidence for atelectasis. No pulmonary nodule or mass is detected. No pleural effusion. MEDIASTINUM: Thoracic aorta is of normal caliber,however, evaluation is limited given timing of the contrast bolus. If there is concern for thoracic aortic pathology consider TANYA. Correlate clinicall y . The heart is not enlarged. No evidence for mediastinal mass. No mediastinal lymph nodes greater than 1cm. HILAR STRUCTURES: No evidence for mass. No hilar lymph nodes greater than 1 cm. UPPER ABDOMEN: No significant abnormality is seen. IMPRESSION: 1. No evidence for Pulmonary embolism at this time. [facility], , 11/17/2023 2:34 PM
[2023-11-17] MEDS: hydrOXYzine pamoate 25 MG CAP PO STA (15:26)
[2023-11-17 15:30] VITALS: BP 119/70; PULSE 77; RESP 18
== END 2023-11-17 15:32 | disposition home or self-care (01) ==
LOC: EC 11:08
CPT/HCPCS: 36415; 71046; 71275; 80053; 83690; 83735; 84100; 84484; 85025; 85379; 85610; 85730; 93005; 96360; 99285

== ENCOUNTER 2024-07-28 02:09 | Observation (INO) | payer MEDICAID ==
[2024-07-28 03:04] LABS: Basophils # (A) 0.02 10*3/uL (0.00-0.10); Basophils % (A) 0.4 %; Eosinophils # (A) 0.05 10*3/uL (0.04-0.35); Eosinophils % (A) 1.1 %; HCT 34.3 % (37.2-46.3); HGB 10.8 g/dL (12.0-15.0); Lymphocytes # (A) 1.32 10*3/uL (0.90-5.00); Lymphocytes % (A) 29.7 %; MCH 22.5 pg (27.0-32.0); MCHC 31.5 g/dL (32.0-37.0); MCV 71.6 fL (80.0-97.0); Mean Platelet Volume 9.9 fL (9.5-12.2); Monocytes % (A) 6.7 %; Neutrophils # (A) 2.75 10*3/uL (1.80-7.70); Neutrophils % (A) 61.9 %; Platelet Count 166 10*3/uL (140-440); RBC 4.79 10*6/uL (4.10-5.20); RDW 14.4 % (11.5-14.5); WBC 4.45 10*3/uL (4.50-10.00)
[2024-07-28] MEDS ORDERED: ONDANSETRON 4 MG/2 ML VIAL IVP PRN (03:14)
[2024-07-28] MEDS ORDERED: MORPHINE SULFATE 4 MG/ML SYRINGE IV PRN (03:14)
[2024-07-28] MEDS ORDERED: NALOXONE 0.4 MG/ML 1 ML VIAL IV PRN (03:14)
[2024-07-28] MEDS ORDERED: KETOROLAC 15 MG/ML 1 ML VIAL IVP PRN (03:14)
[2024-07-28 03:21] LABS: ALT 33 U/L (4-34); AST 53 U/L (14-36); African American GFR (CKD) >90 (>60 ml/min/1.73 sqM); Albumin 3.6 g/dL (3.5-5.0); Alkaline Phosphatase 104 U/L (38-126); Anion Gap 13 mmol/L; Blood Urea Nitrogen 9 mg/dL (7-17); Calcium 9.4 mg/dL (8.4-10.2); Carbon Dioxide 21 mmol/L (22-30); Chloride 104 mmol/L (98-107); Glucose 132 mg/dL (74-99); Lipase 101 U/L (23-300); Non-African American GFR(CKD) >90 (>60 ml/min/1.73 sqM); Potassium 3.5 mmol/L (3.5-5.1); Sodium 138 mmol/L (137-145); Total Bilirubin 0.3 mg/dL (0.2-1.3); Total Protein 6.3 g/dL (6.3-8.2)
[2024-07-28] MEDS: PIPERACILLIN-TAZOBACTAM 3.375 GM in SODIUM CHLORIDE 0.9% 100 ML IVPB STA (03:33)
[2024-07-28] MEDS: SODIUM CHLORIDE 0.9% 1,000 ML IV SCH (03:33)
--- NOTE | 2024-07-28 04:04 | ED ---
Abdominal Pain HPI - General Chief Complaint: Abdominal Pain Stated Complaint: abd pain- transfer from [facility] Time Seen by Provider: 07/28/24 02:24 Source: patient Mode of arrival: ambulatory Limitations: no limitations - History of Present Illness Initial Comments: 39-year-old female presenting as a transfer from [facility]. Patient initially presented to their ER for abdominal pain. She was having epigastric pain that was sharp in nature. She has had this 1 other time a few months ago, she reports that she took several Tums and the pain eventually went away. While at their ER she was found to have a thickened gallbladder wall and a 1.6 cm stone in the neck of the gallbladder. Findings were concerning for acute cholecystitis and the patient was started on Rocephin and metronidazole and transferred to our facility for surgery evaluation - Related Data Previous Rx's Medication Instructions Recorded hydrOXYzine pamoate [Vistaril] 25 mg PO TID PRN #30 cap 11/17/23 Allergies Allergy/AdvReac Type Severity Reaction Status Date / Time No Known Allergies Allergy Verified 07/28/24 02:18 Review of Systems ROS Statement: Those systems with pertinent positive or pertinent negative responses have been documented in the HPI. ROS Other: All systems not noted in ROS Statement are negative. Past Medical History Past Medical History: No Reported History History of Any Multi-Drug Resistant Organisms: None Reported Past Surgical History: Orthopedic Surgery Past Anesthesia/Blood Transfusion Reactions: No Reported Reaction Past Psychological History: No Psychological Hx Reported Smoking Status: Never smoker Past Alcohol Use History: None Reported Past Drug Use History: None Reported - Past Family History Father Family Medical History: Hypertension General Exam Limitations: no limitations General appearance: alert, in no apparent distress Head exam: Present: atraumatic, normocephalic, normal inspection Eye exam: Present: normal appearance, EOMI Neck exam: Present: normal inspection. Absent: meningismus Respiratory exam: Absent: respiratory distress Cardiovascular Exam: Present: regular rate GI/Abdominal exam: Absent: distended Neurological exam: Present: alert, oriented X3 Psychiatric exam: Present: normal affect, normal mood Skin exam: Present: warm, dry, normal color Course Vital Signs 07/28/24 02:15 Temperature 97.7 F Pulse Rate 75 Respiratory 18 Rate Blood Pressure 119/66 O2 Sat by Pulse 100 Oximetry Medical Decision Making - Medical Decision Making Was pt. sent in by a medical professional or institution (NEO Marquez, MANAGER TRANSFER, urgent care, hospital, or residential...) When possible be specific @ -Transfer from [facility] Did you speak to anyone other than the patient for history (EMS, parent, family, police, friend...)? What history was obtained from this source @ -No Did you review nursing and triage notes (agree or disagree)? Why? @ -I reviewed and agree with nursing and triage notes Were old charts reviewed (outside hosp., previous admission, EMS record, old EKG, old radiological studies, urgent care reports/EKG's, residential records)? Report findings @ -I reviewed ultrasound and lab work performed at [facility] earlier this evening Differential Diagnosis (chest pain, altered mental status, abdominal pain women, abdominal pain men, vaginal bleeding, weakness, fever, dyspnea, syncope, headache, dizziness, GI bleed, back pain, seizure, CVA, palpatations, mental health, musculoskeletal)? @ -[facility] Differential Abdominal Pain Women: Appendicitis, Cholecystitis, diverticulosis, ischemic bowel, pancreatitis, hepatitis, UTI, gastroenteritis, AAA, incarcerated hernia, bowel obstruction, constipation, inflammatory bowel, hepatitis, peptic ulcer disease, splenic i nfarction, perforated viscus, vulvitis, ovarian torsion, PID, kidney stone, placenta abruption... This is not meant to be an all-inclusive list EKG interpreted by me (3pts min.). @ -As above X-rays interpreted by me (1pt min.). @ -None done CT interpreted by me (1pt min.). @ -None done U/S interpreted by me (1pt. min.). @ -None done What testing was considered but not performed or refused? (CT, X-rays, U/S, labs)? Why? @ -None What meds were considered but not given or refused? Why? @ -None Did you discuss the management of the patient with other professionals (professionals i.e. NEO Marquez, MANAGER TRANSFER, lab, RT, psych nurse, social services counselor, contract technician, teacher, security vehicle patrol officer, case management specialist)? Give summary @ -I spoke with general surgeon on-call Dr. German, she accepts admission. Advises clear liquid diet until 8 AM and starting the patient on Zosyn Was smoking cessation discussed for >3mins.? @ -No Was critical care preformed (if so, how long)? @ -No Were there social determinants of health that impacted care today? How? (Homelessness, low income, unemployed, alcoholism, drug addiction, transportation, low edu. Level, literacy, decrease access to med. care, [facility], rehab)? @ -No Was there de-escalation of care discussed even if they declined (Discuss DNR or withdrawal of care, Hospice)? DNR status @ -No What co-morbidities impacted this encounter? (DM, HTN, Smoking, COPD, CAD, Can cer, CVA, ARF, Chemo, Hep., AIDS, mental health diagnosis, sleep apnea, morbid obesity)? @ -None Was patient admitted / discharged? Hospital course, mention meds given and route, prescriptions, significant lab abnormalities, going to OR and other pertinent info. @ -39-year-old female presenting as a transfer from [facility] for possible acute cholecystitis requiring surgical evaluation. Her ultrasound revealed a thickened gallbladder wall and 1.6 cm stone stuck in the neck of the gallblad genesis. Patient will be admitted to our facility, she started on Zosyn. She will be evaluated by surgery in the morning. Dr. German advised clear liquid diet until 8 AM. Patient is agreeable with this plan. I discussed this case with my attending Dr. Estrada Undiagnosed new problem with uncertain prognosis? @ -No Drug Therapy requiring intensive monitoring for toxicity (Heparin, Nitro, Insuli n, Cardizem)? @ -No Were any procedures done? @ -No Diagnosis/symptom? @ -Acute cholecystitis Acute, or Chronic, or Acute on Chronic? @ -Acute Uncomplicated (without systemic symptoms) or Complicated (systemic symptoms)? @ -Complicated Side effects of treatment? @ -No Exacerbation, Progression, or Severe Exacerbation? @ -No Poses a threat to life or bodily function? How? (Chest pain, USA, [place], pneumonia, PE, COPD, DKA, ARF, appy, cholecystitis, CVA, Diverticulitis, Homicidal, Suicidal, threat to staff... and all critical care pts) @ -yes - Lab Data Result diagrams: 07/28/24 02:53 07/28/24 02:53 Lab Results 07/28/24 07/28/24 Range/Units 02:53 02:53 WBC 4.45 L (4.50-10.00) 10*3/uL RBC 4.79 (4.10-5.20) 10*6/uL Hgb 10.8 L (12.0-15.0) g/dL Hct 34.3 L (37.2-46.3) % MCV 71.6 L (80.0-97.0) fL MCH 22.5 L (27.0-32.0) pg MCHC 31.5 L (32.0-37.0) g/dL Plt Count 166 (140-440) 10*3/uL MPV 9.9 (9.5-12.2) fL Immature Gran % (Auto) 0.2 % Neutrophils % 61.9 % Lymphocytes % 29.7 % Monocytes % 6.7 % Eosinophils % 1.1 % Basophils % 0.4 % Immature Gran # 0.01 (0.00-0.04) 10*3/uL Neutrophils # 2.75 (1.80-7.70) 10*3/uL Lymphocytes # 1.32 (0.90-5.00) 10*3/uL Monocytes # 0.30 (0.20-1.00) 10*3/uL Eosinophils # 0.05 (0.04-0.35) 10*3/uL Basophils # 0.02 (0.00-0.10) 10*3/uL Sodium 138 (137-145) mmol/L Potassium 3.5 (3.5-5.1) mmol/L Chloride 104 (98-107) mmol/L Carbon Dioxide 21 L (22-30) mmol/L Anion Gap 13 mmol/L BUN 9 (7-17) mg/dL Creatinine 0.53 (0.52-1.04) mg/dL Est GFR (CKD-EPI)AfAm >90 (>60 ml/min/1.73 sqM) Est GFR (CKD-EPI)NonAf >90 (>60 ml/min/1.73 sqM) Glucose 132 H (74-99) mg/dL Calcium 9.4 (8.4-10.2) mg/dL Total Bilirubin 0.3 (0.2-1.3) mg/dL AST 53 H (14-36) U/L ALT 33 (4-34) U/L Alkaline Phosphatase 104 (38-126) U/L Total Protein 6.3 (6.3-8.2) g/dL Albumin 3.6 (3.5-5.0) g/dL Lipase 101 (23-300) U/L Disposition Clinical Impression: Acute cholecystitis Disposition: ADMITTED IP TO THIS HOSP Condition: Fair Referrals: Geoffrey Shay DO [Primary Care Provider] - 1-2 days
[2024-07-28 07:00] VITALS: RESP 16
[2024-07-28] MEDS ORDERED: SCOPOLAMINE 1 MG/72 HR PATCH TRANSDERM STA (07:49)
[2024-07-28] MEDS: KETOROLAC 15 MG/ML 1 ML VIAL IVP SCH (09:29)
[2024-07-28] MEDS: ONDANSETRON 4 MG/2 ML VIAL IVP SCH (09:29)
[2024-07-28 09:30] LABS: Basophils # (A) 0.02 10*3/uL (0.00-0.10); Basophils % (A) 0.6 %; Eosinophils # (A) 0.03 10*3/uL (0.04-0.35); Eosinophils % (A) 0.8 %; HCT 36.2 % (37.2-46.3); HGB 11.5 g/dL (12.0-15.0); Lymphocytes # (A) 0.92 10*3/uL (0.90-5.00); Lymphocytes % (A) 25.6 %; MCHC 31.8 g/dL (32.0-37.0); MCV 72.4 fL (80.0-97.0); Mean Platelet Volume 9.7 fL (9.5-12.2); Monocytes # (A) 0.25 10*3/uL (0.20-1.00); Monocytes % (A) 6.9 %; Neutrophils # (A) 2.37 10*3/uL (1.80-7.70); Neutrophils % (A) 65.8 %; Platelet Count 195 10*3/uL (140-440); RDW 14.6 % (11.5-14.5)
[2024-07-28 09:54] LABS: ALT 33 U/L (4-34); AST 34 U/L (14-36); African American GFR (CKD) >90 (>60 ml/min/1.73 sqM); Albumin 3.7 g/dL (3.5-5.0); Albumin/Globulin Ratio 1.4; Alkaline Phosphatase 94 U/L (38-126); Anion Gap 6 mmol/L; Blood Urea Nitrogen 8 mg/dL (7-17); Calcium 9.3 mg/dL (8.4-10.2); Carbon Dioxide 26 mmol/L (22-30); Chloride 107 mmol/L (98-107); Globulin 2.7 g/dL; Glucose 108 mg/dL (74-99); Non-African American GFR(CKD) >90 (>60 ml/min/1.73 sqM); Sodium 139 mmol/L (137-145); Total Bilirubin 0.4 mg/dL (0.2-1.3); Total Protein 6.4 g/dL (6.3-8.2)
[2024-07-28] MEDS: PIPERACILLIN-TAZOBACTAM 3.375 GM in SODIUM CHLORIDE 0.9% 100 ML IVPB SCH (10:57)
[2024-07-28 11:25] VITALS: BP 108/70; PULSE 83; TEMP 97.9
--- NOTE | 2024-07-28 12:25 | P.GSHP ---
History of Present Illness H&P Date: 07/28/24 CHIEF COMPLAINT: abdominal pain HISTORY OF PRESENT ILLNESS: This is a 39-year-old female who initially presented to [place] [facility] in [facility] for quadrant abdominal pain. She reports the pain started last night. She had eaten hotdogs and mac & cheese for dinner. And during the evening patient started with epigastric pain that radiated across the upper abdomen and around the back and between the shoulder blades. Patient reports taking Tums to help alleviate the nausea and pain. She had no relief. She reports the pain became very severe and she went to the ER in [facility] for evaluation. They completed a gallbladder ultrasound there which noted a thickened gallbladder and a 1.6 cm gallstone in the neck of the gallbladder. She was transferred to [facility] for surgical evaluation. Patient reports that she has been dealing with this type of pain since last summer. Patient reports currently pain has resolved and nausea resolved. She reports that her PCP had ordered a ultrasound but the patient never did get that test completed. Patient does report a history of heart palpitations less than a year ago and was evaluated by Dr. Davis. Patient reports having echo and stress test completed at that time which were fine per patient. PAST MEDICAL HISTORY: See list. PAST SURGICAL HISTORY: See list. MEDICATIONS: See list. ALLERGIES: See list. SOCIAL HISTORY: No illicit drug use. REVIEW OF SYSTEMS: CONSTITUTIONAL: Denies fever or chills. HEENT: Denies blurred vision, vision changes, or eye pain. Denies hemoptysis ENDOCRINE: Denies heat or cold intolerance. CARDIOVASCULAR: Denies chest pain or pressure. RESPIRATORY: No shortness of breath. GASTROINTESTINAL: Denies abdominal pain. Denies nausea or vomiting. NEURO: Denies history of seizures. PSYCH: No depression or suicidal ideation HEMATOLOGIC: Denies bleeding disorders. LYMPHATIC: The patient denies any lumps and bumps around the neck. GENITOURINARY: Denies any blood in urine or increased urinary frequency. MUSCULOSKELETAL: Denies myalgias. Denies joint swelling. Denies decreased range of motion beyond patients baseline. SKIN: Denies pruitis. Denies rash. PHYSICAL EXAM: VITAL SIGNS: Reviewed GENERAL: Well-developed in no acute distress. HEENT: No sclera icterus. Extraocular movements grossly intact. Moist buccal mucosa. Head is atraumatic, normocephalic. Hears conversational speech. No nasal drainage. NECK: Supple without lymphadenopathy. CHEST: Non-labored respirations and equal bilateral excursions. CARDIOVASCULAR: Palpable 2+ radial pulses. ABDOMEN: Soft. Nondistended. Nontender MUSCULOSKELETAL: No clubbing or cyanosis. NEUROLOGIC: No focal or lateralizing signs. Cranial nerves II through XII grossly intact. PSYCH: Appropriate affect. Alert and oriented to person, place and time. SKIN: Well perfused. Good skin turgor. LABORATORY DATA: WBC 3.60 HGB 11.5 Plt 195 Na 139 K 4.0 cr 0.66 Total bili 0.4 AST 53-34 ALT 33 alk phos 94 lipase 101 IMAGING: Gallbladder ultrasound reports nonmobile bile 1.9 cm calculus within the neck of the gallbladder. Gallbladder wall is thickened which is part due to his contracted state. ASSESSMENT: 1. Acute cholecystitis with gallstone noted in the neck of the gallbladder PLAN: -Patient scheduled for Robotic cholecystectomy tomorrow with Dr. Maxi English for clear liquid diet today -N.p.o. after midnight -Continue antibiotics -Continue IV fluids -Preop EKG ordered due to history of palpitations Physician Waredresser note has been reviewed by physician. Signing provider agrees with the documented findings, assessment, and plan of care. Please see additional documentation per MD CHIEF COMPLAINT: Abdominal pain due to acute cholecystitis HISTORY OF PRESENT ILLNESS: The patient is a 39-year-old female transferred from outside facility due to acute cholecystitis from gallstones. Patient reports having similar symptoms for almost 10 months. Patient was due to have outpatient ultrasound of the abdomen. 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 She reports eating fatty greasy foods at the time of her onset of her abdominal pain. She reports epigastric abdominal pain moderate to severe. Patient at time of my assessment reports resolution of her abdominal pain. PAST MEDICAL HISTORY: See list and reviewed PAST SURGICAL HISTORY: See list and reviewed MEDICATIONS: See list and reviewed ALLERGIES: See list and reviewed SOCIAL HISTORY: See list and reviewed FAMILY HISTORY: See list and reviewed REVIEW OF ORGAN SYSTEMS: CONSTITUTIONAL: No fevers or chills. Body mass index 37.8. EYES: Denies any trouble with vision. No glasses. HEENT: No difficulties with hearing. No nosebleeds. No difficulty swallowing. RESPIRATORY: Denies pneumonia. Denies any troubles with breathing or dyspnea on exertion. CARDIOVASCULAR: Denies any chest pain, palpitations, or recent heart attacks. GASTROINTESTINAL: Denies fatty food intolerance. Denies change in bowel habits and gas bloat. GENITOURINARY: Denies any blood in urine or increased urinary frequency. NEUROLOGICAL: Denies any numbness or tingling along the distal extremities. No seizure disorders or headaches. MUSCULOSKELETAL: Denies any back pain, stiffness or joint arthritis. SKIN: No current skin cancer. No rash. PSYCHIATRIC: Has depression and anxiety disorder. ENDOCRINE: Denies current thyroid disorders. Denies any blood sugar glucose intolerance. HEME/LYMPHATIC: Denies any lumps and bumps around the neck. No recent deep venous thrombosis. ALLERGY/IMMUNOLOGY: No immunoglobulin therapy. No immune deficiencies. BREAST: Denies current breast lumps, pain or nipple discharge. PHYSICAL EXAM: VITALS: Reviewed CONSTITUTIONAL: Well developed and in no acute distress. EYES: Conjuctivae without sclera icterus. Extraocular movements grossly intact. HEAD, EARS, NOSE, THROAT: Moist buccal mucosa. Head is atraumatic, normocephalic. Hears conversational speech. No nasal drainage. NECK: Supple. No JV distention. No thyroidomegaly. RESPIRATORY: Non-labored respirations and equal bilateral excursions. No gross wheezes. CARDIOVASCULAR: Palpable 2+ radial pulses. ABDOMEN: No peritonitis. LYMPH: No neck lymphadenopathy. MUSCULOSKELETAL: No clubbing cyanosis or edema SKIN: Warm and well perfused with good skin turgor. NEUROLOGIC: Cranial nerves II through XII grossly intact. No focal or lateralizing signs. PSYCH: Appropriate affect. Alert and oriented to person, place and time. Displays appropriate insight. CLINCAL LABS: Reviewed. WBC low at 4.45. Hemoglobin low 10.8, anemia. AST elevated 53. Repeat labs demonstrates resolution of elevated LFTs. EKG: Normal sinus rhythm. REPORT: Outside reports. Ultrasound of gallbladder report reviewed demonstrates 2 cm impacted gallstone with thickened gallbladder wall. ASSESSMENT: 1. Acute cholecystitis due to gallstones 2. Morbid obesity due to excess calories, BMI 37.8 3. Generalized anxiety disorder 4. Depressive disorder PLAN: 1. IV fluid hydration. 2. Patient given surgical options for cholecystectomy ADVANCE DIRECTIVE: CODE STATUS in chart Thank you for this kind consultation. Dictation was produced using Dragon dictation software. Please excuse any grammatical, word or spelling errors. Past Medical History Past Medical History: No Reported History History of Any Multi-Drug Resistant Organisms: None Reported Past Surgical History: Section, Orthopedic Surgery Additional Past Surgical History / Comment(s): Irrigated some authritis 2009 Past Anesthesia/Blood Transfusion Reactions: No Reported Reaction Past Psychological History: Anxiety, Depression Smoking Status: Never smoker Past Alcohol Use History: None Reported Past Drug Use History: None Reported - Past Family History Father Family Medical History: Hypertension Additional Family Medical History / Comment(s): "multiple other cardiac things" Autherosclerosis, and 11 stents placed. Medications and Allergies Home Medications Medication Instructions Recorded Confirmed Type No Known Home Medications 07/28/24 07/28/24 History Allergies Allergy/AdvReac Type Severity Reaction Status Date / Time No Known Allergies Allergy Verified 07/28/24 06:55 Surgical - Exam Vital Signs Temp Pulse Resp BP Pulse Ox 97.7 F 75 18 119/66 100 07/28/24 02:15 07/28/24 02:15 07/28/24 02:15 07/28/24 02:15 07/28/24 02:15 Results - Labs 07/28/24 09:11 07/28/24 09:11 Abnormal Lab Results - Last 24 Hours (Table) 07/28/24 07/28/24 07/28/24 Range/Units 02:53 02:53 09:11 WBC 4.45 L 3.60 L (4.50-10.00) 10*3/uL Hgb 10.8 L 11.5 L (12.0-15.0) g/dL Hct 34.3 L 36.2 L (37.2-46.3) % MCV 71.6 L 72.4 L (80.0-97.0) fL MCH 22.5 L 23.0 L (27.0-32.0) pg MCHC 31.5 L 31.8 L (32.0-37.0) g/dL RDW 14.6 H (11.5-14.5) % Eosinophils # 0.03 L (0.04-0.35) 10*3/uL Carbon Dioxide 21 L (22-30) mmol/L Glucose 132 H (74-99) mg/dL AST 53 H (14-36) U/L 07/28/24 Range/Units 09:11 WBC (4.50-10.00) 10*3/uL Hgb (12.0-15.0) g/dL Hct (37.2-46.3) % MCV (80.0-97.0) fL MCH (27.0-32.0) pg MCHC (32.0-37.0) g/dL RDW (11.5-14.5) % Eosinophils # (0.04-0.35) 10*3/uL Carbon Dioxide (22-30) mmol/L Glucose 108 H (74-99) mg/dL AST (14-36) U/L Diabetes panel 07/28/24 07/28/24 Range/Units 02:53 09:11 Sodium 138 139 (137-145) mmol/L Potassium 3.5 4.0 (3.5-5.1) mmol/L Chloride 104 107 (98-107) mmol/L Carbon Dioxide 21 L 26 (22-30) mmol/L BUN 9 8 (7-17) mg/dL Creatinine 0.53 0.66 (0.52-1.04) mg/dL Glucose 132 H 108 H (74-99) mg/dL Calcium 9.4 9.3 (8.4-10.2) mg/dL AST 53 H 34 (14-36) U/L ALT 33 33 (4-34) U/L Alkaline Phosphatase 104 94 (38-126) U/L Total Protein 6.3 6.4 (6.3-8.2) g/dL Albumin 3.6 3.7 (3.5-5.0) g/dL Calcium panel 07/28/24 07/28/24 Range/Units 02:53 09:11 Calcium 9.4 9.3 (8.4-10.2) mg/dL Albumin 3.6 3.7 (3.5-5.0) g/dL Pituitary panel 07/28/24 07/28/24 Range/Units 02:53 09:11 Sodium 138 139 (137-145) mmol/L Potassium 3.5 4.0 (3.5-5.1) mmol/L Chloride 104 107 (98-107) mmol/L Carbon Dioxide 21 L 26 (22-30) mmol/L BUN 9 8 (7-17) mg/dL Creatinine 0.53 0.66 (0.52-1.04) mg/dL Glucose 132 H 108 H (74-99) mg/dL Calcium 9.4 9.3 (8.4-10.2) mg/dL Adrenal panel 07/28/24 07/28/24 Range/Units 02:53 09:11 Sodium 138 139 (137-145) mmol/L Potassium 3.5 4.0 (3.5-5.1) mmol/L Chloride 104 107 (98-107) mmol/L Carbon Dioxide 21 L 26 (22-30) mmol/L BUN 9 8 (7-17) mg/dL Creatinine 0.53 0.66 (0.52-1.04) mg/dL Glucose 132 H 108 H (74-99) mg/dL Calcium 9.4 9.3 (8.4-10.2) mg/dL Total Bilirubin 0.3 0.4 (0.2-1.3) mg/dL AST 53 H 34 (14-36) U/L ALT 33 33 (4-34) U/L Alkaline Phosphatase 104 94 (38-126) U/L Total Protein 6.3 6.4 (6.3-8.2) g/dL Albumin 3.6 3.7 (3.5-5.0) g/dL
[2024-07-28] MEDS: ACETAMINOPHEN IV (For NPO) 1,000 MG in EMPTY BAG 1 BAG IVPB SCH (12:50)
--- NOTE | 2024-07-28 15:31 | P.DS ---
Providers Date of admission: 07/28/24 05:07 Expected date of discharge: 07/28/24 Attending physician: Rocio German Primary care physician: Geoffrey Shay [facility] Course: Discharge diagnosis 1. Acute cholecystitis with gallstone noted in the neck of the gallbladder Hospital course This is a 39-year-old female who initially presented to [facility] in [facility] for abdominal pain. She reports the pain started last night. She had eaten hotdogs and mac & cheese for dinner. And during the evening patient started with epigastric pain that radiated across the upper abdomen and around the back and between the shoulder blades. Patient reports taking Tums to help alleviate the nausea and pain. She had no relief. She reports the pain became very severe and she went to the ER in [facility] for evaluation. They comp leted a gallbladder ultrasound there which noted a thickened gallbladder and a 1.6 cm gallstone in the neck of the gallbladder. She was transferred to [facility] for surgical evaluation. Patient reports that she has been dealing with this type of pain since last summer. Patient reports currently pain has resolved and nausea resolved. Patient is stable. Her pain has resolved. She is tolerating diet. Patient is agreeable to outpatient robotic cholecystectomy. Surgery has been scheduled for , 08/04/[address] German. Patient is stable for discharge. Physician Admin Dir note has been reviewed by physician. Signing provider agrees with the documented findings, assessment, and plan of care. Please see additional documentation per MD COURSE: The patient is a 39-year-old female transferred from outside facility due to acute cholecystitis from gallstones. Patient reports her abdominal pain had improved and due to social restrictions including nonavailability of the operating room for the next 24 to 48 hours, patient was given outpatient for outpatient cholecystectomy. Patient agreed for outpatient management. Strict low-fat diet was described in the interim. Patient Condition at Discharge: Stable Plan - Discharge Summary Discharge Rx Participant: No New Discharge Prescriptions: No Action No Known Home Medications Discharge Medication List No Known Home Medications 07/28/24 [History] Follow up Appointment(s)/Referral(s): Rocio German MD [STAFF PHYSICIAN] - 08/04/24 Geoffrey Shay DO [Primary Care Provider] - 06/11/25 2:15 pm Activity/Diet/Wound Care/Special Instructions: Patient's Robotic cholecystectomy is scheduled for , August 04, [address] German. Scheduling department will contact patient with further information. Discharge Disposition: HOME SELF-CARE
== END 2024-07-28 16:06 | disposition home or self-care (01) ==
LOC: EC 02:09 → 5NMEDONC 05:07
PROVIDERS: ADMIT Surgery Plastic and Reconstructive Surgery; ATTEND Surgery Plastic and Reconstructive Surgery
DX: K80.12 Calculus of gallbladder with acute and chronic cholecystitis without obstruction (principal); F41.1 Generalized anxiety disorder; F32.A Depression, unspecified; E66.01 Morbid (severe) obesity due to excess calories; Z68.37 Body mass index [BMI] 37.0-37.9, adult
CPT/HCPCS: 96366 ×2; 96365; 99285; 36415; 80053; 83690; 85025; G0378; J2543

== ENCOUNTER 2024-08-25 10:49 | Day surgery (SDC) | payer MEDICAID ==
--- NOTE | 2024-08-25 07:41 | P.GSHP ---
History of Present Illness H&P Date: 08/25/24 CHIEF COMPLAINT: Dysphagia and colon screen HISTORY OF PRESENT ILLNESS: The patient is a 39-year-old female who presents with dysphagia, gastroesophageal reflux disease and change in bowel habits for 8 months with worsening symptoms. Upper and lower endoscopy were offered for further evaluation and management. PAST MEDICAL HISTORY: Please see list. PAST SURGICAL HISTORY: Please see list. MEDICATIONS: Please see list. ALLERGIES: Please see list. SOCIAL HISTORY: No illicit drug use FAMILY HISTORY: No reports of Crohn disease or ulcerative colitis. REVIEW OF ORGAN SYSTEMS: CONSTITUTIONAL: No reports of fevers or chills. GI: Change in bowel habits. PHYSICAL EXAM: VITAL SIGNS: Stable GENERAL: Well-developed pleasant in no acute distress. HEENT: No scleral icterus. Extraocular movements grossly intact. Moist buccal mucosa. NECK: Supple without lymphadenopathy. CHEST: Unlabored respirations. Equal bilateral excursions. CARDIOVASCULAR: Regular rate and rhythm. Distal 2+ pulses. ABDOMEN: Soft, nondistended. MUSCULOSKELETAL: No clubbing, cyanosis, or edema. ASSESSMENT: 1. Dysphagia and gastroesophageal reflux disease 2. Change in bowel habits PLAN: 1. Recommend proceeding with an upper and lower endoscopy Past Medical History Past Medical History: Osteoarthritis (OA) Additional Past Medical History / Comment(s): Varicose veins, ocular migraines, gallstones History of Any Multi-Drug Resistant Organisms: None Reported Past Surgical History: Section, Orthopedic Surgery Additional Past Surgical History / Comment(s): Irrigated some arthritis 2008. Past Anesthesia/Blood Transfusion Reactions: No Reported Reaction Smoking Status: Never smoker - Past Family History Father Family Medical History: Hypertension Medications and Allergies Home Medications Medication Instructions Recorded Confirmed Type Calcium Carbonate [Tums] 500 mg PO DIRECTED PRN 08/02/24 08/24/24 History Ascorbic Acid [Vitamin C] 1,000 mg PO DAILY 08/24/24 08/24/24 History Cholecalciferol [Vitamin D3 (25 50 mcg PO DAILY 08/24/24 08/24/24 History Mcg = 1000 Iu)] Omeprazole 20 mg PO DAILY 08/24/24 08/24/24 History Allergies Allergy/AdvReac Type Severity Reaction Status Date / Time No Known Allergies Allergy Verified 08/24/24 09:06
[~2024-08-25 10:49] MED LIST: LIDOCAINE 1% (10MG/ML) FOR IV START INTRADERMA PRN
[2024-08-25] MEDS: IV FLUID CONTINUATION 1,000 ML IV ONE (11:01)
[2024-08-25 11:10] VITALS: RESP 16; TEMP 97.7
[2024-08-25] MEDS: LACTATED RINGERS 1,000 ML IV SCH (11:18)
[2024-08-25] MEDS ORDERED: PROPOFOL 10 MG/ML 20 ML VIAL IV ONE (11:25)
[2024-08-25 12:12] VITALS: BP 120/68; PULSE 73
--- NOTE | 2024-08-25 12:19 | P.PCN ---
Date of Procedure: 08/25/24 Description of Procedure: PREOPERATIVE DIAGNOSIS: Gastroesophageal reflux disease. Dysphagia POSTOPERATIVE DIAGNOSIS: Gastroesophageal reflux disease. Gastritis. OPERATION: Esophagogastroduodenoscopy with cold forceps biopsies along esophagus, antrum and duodenum SURGEON: Rocio German MD ANESTHESIA: MAC. INDICATIONS: The patient is a 39-year-old female who presents with dysphagia and reflux disease. Benefits and risks of the procedure were described. Informed consent was obtained. DESCRIPTION: The patient was brought into the endoscopy suite and laid in the left lateral decubitus position. An Olympus gastroscope was passed along the posterior oropharynx down to the distal esophagus where the squamocolumnar junction was encountered at 40 cm from the incisors. The stomach was entered and no bile reflux was found. Additional findings are listed below. Biopsies with cold forceps were obtained of the antrum. The first through third portion of the duodenum was examined. Retroflexion of the scope confirmed Hill grade 2 lower esophageal valve. The squamocolumnar junction demonstrated LA grade B erosive esophagitis. The stomach was desufflated. The patient tolerated the procedure well. FINDINGS: Squamocolumnar junction 40 cm from the incisors. Diaphragmatic hiatus at 40 cm. Hill grade 2 lower esophageal valve. LA grade B erosive esophagitis. Biopsies obtained Biopsies obtained of the duodenum. Chronic gastritis with biopsies obtained. RECOMMENDATIONS: Upper endoscopy as needed.
--- NOTE | 2024-08-25 12:21 | P.PCN ---
Date of Procedure: 08/25/24 Description of Procedure: PREOPERATIVE DIAGNOSIS: Abnormal stool function Change in bowel habits POSTOPERATIVE DIAGNOSIS: Microscopic colitis OPERATION: Colonoscopy to the cecum, ileocecal valve and appendiceal orifice. Colonoscopy with random cold forceps biopsies for microscopic colitis SURGEON: Rocio German MD. ANESTHESIA: MAC. INDICATIONS: The patient is a 39-year-old female who presents with altered stools including change in bowel habits. Benefits and risks were described and informed consent was obtained. DESCRIPTION OF PROCEDURE: The patient had undergone Suprep. The patient had been brought into the operating room and laid in the left lateral decubitus position. After adequate intravenous sedation, the rectum was examined with 2% lidocaine jelly. External hemorrhoids were encountered. The rectal tone was within normal limits. No lesions were palpated in the rectal vault. An Olympus colonoscope was advanced until the cecum, ileocecal valve and appendiceal orifice were clearly viewed. The prep was excellent. No scattered diverticulosis was encountered. No colonic polyps were found. Cold forceps biopsies randomly were obtained for microscopic colitis. Retroflexion of the scope demonstrated grade 2 internal hemorrhoids without active bleeding or inflammation. The colon was desufflated. The patient had tolerated the procedure well. Withdrawal time was over 6 minutes. FINDINGS: Aronchick preparation quality scale 1 (1-5) Internal hemorrhoids, grade 1 External prolapsed hemorrhoids, grade 2 No arteriovenous malformations. No adenomatous polyps. Cold forceps biopsies obtained for microscopic colitis RECOMMENDATIONS: Lower endoscopy as needed Plan - Discharge Summary Discharge Rx Participant: No New Discharge Prescriptions: New Omeprazole [PriLOSEC] 40 mg PO DAILY #14 cap Continue Calcium Carbonate [Tums] 500 mg PO DIRECTED PRN PRN Reason: Indigestion Cholecalciferol [Vitamin D3 (25 Mcg = 1000 Iu)] 50 mcg PO DAILY Ascorbic Acid [Vitamin C] 1,000 mg PO DAILY Discontinued Omeprazole 20 mg PO DAILY Discharge Medication List Calcium Carbonate [Tums] 500 mg PO DIRECTED PRN 08/02/24 [History] Ascorbic Acid [Vitamin C] 1,000 mg PO DAILY 08/24/24 [History] Cholecalciferol [Vitamin D3 (25 Mcg = 1000 Iu)] 50 mcg PO DAILY 08/24/24 [History] Omeprazole [PriLOSEC] 40 mg PO DAILY #14 cap 08/25/24 [Rx] Follow up Appointment(s)/Referral(s): Rocio German MD [STAFF PHYSICIAN] - As Needed Patient Instructions/Handouts: *Surgery [facility] - (Anesthesia) Discharge Instructions Outpatient Surgery, Gastritis (DC), Colonoscopy (DC), Upper Endoscopy (DC) Discharge Disposition: HOME SELF-CARE
== END 2024-08-25 13:03 | disposition home or self-care (01) ==
LOC: ORWHC2ENDO 10:49
PROVIDERS: ATTEND Surgery Plastic and Reconstructive Surgery
DX: K29.50 Unspecified chronic gastritis without bleeding (principal); K21.00 Gastro-esophageal reflux disease with esophagitis, without bleeding; K64.1 Second degree hemorrhoids; K80.20 Calculus of gallbladder without cholecystitis without obstruction; F41.9 Anxiety disorder, unspecified; G43.909 Migraine, unspecified, not intractable, without status migrainosus; M19.90 Unspecified osteoarthritis, unspecified site; Z82.49 Family history of ischemic heart disease and other diseases of the circulatory system; Z79.899 Other long term (current) drug therapy
CPT/HCPCS: 81025; 88305; 45380; 43239; J2704